=== PATIENT | male | born 1945 | race Caucasian/White ===

== ENCOUNTER 2018-10-16 14:14 | Inpatient (IN) | payer OTHER ==
[~2018-10-16] VITALS: Ht 172.7 cm; Wt 97.1 kg
--- NOTE | ~2018-10-16 | PR ---
[place], [place] PROGRESS NOTE NAME: INGRID SHAH UNIT #: [id number] ROOM: 316 DOCTOR: RUSS ZARAGOZA MD BIRTHDATE: [birth year] DOS: 10/18/2018 CHIEF COMPLAINT: The patient was very somnolent. SUMMARY OF THE VISIT: The patient was attempted to be interviewed. He had most of his breakfast eaten. He was dozing in his chair. As I called his name, he did make eye contact, but he did not make any verbalizations. He seemed very sedate. Nurses report no p.r.n. was given. MENTAL STATUS: He is alert and oriented to self, unclear place or time. Mood does seem to be still depressed. Affect flat, blunted, when he did speak. There is no germania, hypomania, and I could not elicit any psychotic symptoms, although nurses report this persists. PLAN: I will increase his Remeron from 15 to 30 mg at bedtime in an effort to lessen the sedation. We will engage in individual and dunbar milieu activity, returning to the least restrictive environment when psychiatrically stable. RUSS ZARAGOZA MD CM:PNTRANS RUSS ZARAGOZA MD 10/18/18 0846 interface
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
--- NOTE | ~2018-10-16 | PR ---
[place], [place] PROGRESS NOTE NAME: INGRID SHAH UNIT #: [id number] ROOM: 316 DOCTOR: RUSS ZARAGOZA MD BIRTHDATE: [birth year] DOS: 10/24/2018 INTERVAL NOTE CHIEF COMPLAINT: "I am not taking any of your poison." SUMMARY OF THE VISIT: The patient was interviewed in the dining area where he was sitting by himself. He engaged readily in conversation. He was very much negative about taking any medication. I did confront him on our conversation, we had in front of the records associate where he did state that he was feeling better and felt that the medications were working. I also further eluded that if he was not compliant with his medication, then his possible discharge that was going to happen as early as Monday may not happen. MENTAL STATUS: He is alert and oriented to person, place, not necessarily to time. Mood does seem to be solidly trending towards euthymia until this blip in the road. This does seem to be more access to driven than true psychosis or germania. Memory for the most part is intact. PLAN: I will simplify his drug regimen despite increasing his Depakote level, his levels have remained subtherapeutic, the most recent being 14.3. I will stop the Depakote. This will lessen the amount of meds that we presented to him. I will instruct nurses to attempt to facilitate having him take his Fanapt. We will monitor and support, engage in individual and dunbar milieu activity. RUSS ZARAGOZA MD CM:PNTRANS 6 5 RUSS ZARAGOZA MD 10/24/1825 interface
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
--- NOTE | ~2018-10-16 | PR ---
[place], [place] PROGRESS NOTE NAME: INGRID SHAH UNIT #: [id number] ROOM: 316 DOCTOR: RUSS ZARAGOZA MD BIRTHDATE: [birth year] DOS: 10/23/2018 INTERVAL NOTE CHIEF COMPLAINT: "I think I'm better doctor, I think I will sign in." SUMMARY OF THE VISIT: The patient was seen several times today first prior to his court hearing for continued stay. At that point in time, the patient did verbalize that he is feeling better and that this is the best he has felt in some time. His was there who also had the same opinion. The patient did at that time voluntarily sign in the hospital. Later, he was refusing to have his blood drawn to recheck a valproic acid level. The patient is frustrated by the amount of lab draws he is having. I did intervene at that point and give him support and discussed the importance of this blood test. I did also inform him that if this level was normal, he would have no further Depakote levels drawn during this hospital stay. The patient did eventually acquiesced and allowed the valproic acid level to be drawn. Overall, there is a steady trend in improvement. His behavior well at times is testing limits. Overall, he is much more appropriate in his conversation and his behavior has been much less bizarre and unpredictable. Outwardly, he is also tolerating the medicine well and I see no sedation, somnolence, extrapyramidal symptoms or tardive dyskinesia. MENTAL STATUS: He remains alert and oriented to person, place, very approximate to time. Mood does seem to be trending towards euthymia. Affect is more appropriate. There is no germania, hypomania or gross psychosis. For the most part, memory is intact. PLAN: I will increase his Fanapt from 8 mg twice a day to 8 mg in the morning and 12 mg at nighttime, increasing the nighttime dose so that he sleeps well and is not at all somnolent during the day. We will check the valproic acid level as mentioned earlier if the level is therapeutic maintained if not adjust accordingly. Continue to engage in individual and dunbar milieu activity, returning then to the least restrictive environment when psychiatrically stable. [place], [place] PROGRESS NOTE NAME: INGRID SHAH UNIT #: [id number] ROOM: [facility] DOCTOR: RUSS ZARAGOZA MD BIRTHDATE: [birth year] RUSS ZARAGOZA MD CM:PNTRANS [id number] RUSS ZARAGOZA MD 10/23/18 1648 interface
--- NOTE | ~2018-10-16 | PR ---
[place], [place] PROGRESS NOTE NAME: INGRID SHAH UNIT #: [id number] ROOM: 316 DOCTOR: RUSS ZARAGOZA MD BIRTHDATE: [birth year] DOS: 10/25/2018 INTERVAL NOTE CHIEF COMPLAINT: "Hey, is there any way a isis can get a shower around here." SUMMARY OF THE VISIT: The patient was interviewed as he was sitting with a female peer in the dining area. He engaged readily in conversation that for the most part was goal directed and pleasant. Nurses report that he was compliant with all of his medications yesterday and did not test limits and refused any of the medication. I did discuss with him the fact that I have discontinued his Depakote to simplify his regimen, leaving him with just the Remeron and the Fanapt and he nodded in approval. He does for the most part seem to be strongly trending towards euthymia and does not seem to be experiencing any type of side effects from the medications. I do not see sedation, somnolence, extrapyramidal symptoms or tardive dyskinesia. MENTAL STATUS: He is alert and oriented with time gaps. Mood does seem to be strongly trending towards euthymia. Affect is more appropriate. There is no germania, hypomania or psychosis. Memory for the most part is intact. PLAN: I will go ahead and print his scripts so that his may take them to the [place] in [place] to get them filled. Maintain his current psychotropic regimen at this time, engage in individual and dunbar milieu activity, returning then to the least restrictive environment when psychiatrically stable. RUSS ZARAGOZA MD CM:PNTRANS [id number] RUSS ZARAGOZA MD 10/25/18 1151 interface
--- NOTE | ~2018-10-16 | PR ---
[place], [place] PROGRESS NOTE NAME: INGRID SHAH UNIT #: [id number] ROOM: 316 DOCTOR: RUSS ZARAGOZA MD BIRTHDATE: [birth year] DOS: 10/26/2018 INTERVAL NOTE CHIEF COMPLAINT: "I wish I could watch the football games." SUMMARY OF THE VISIT: The patient was interviewed in the dining area where he was sitting watching [employer]. He stopped and engaged in conversation. He was much more pleasant and cooperative. No bizarre talk was noted. No sexual inappropriate behavior. Outwardly, he does seem to be tolerating the medication regimen well and I see no sedation, somnolence or extrapyramidal symptoms. MENTAL STATUS: He is alert and oriented with time gaps. Mood does seem to be strongly trending towards euthymia. Affect is more appropriate. There is no germania, hypomania or gross psychosis. Memory is intact. PLAN: I will continue his current psychotropic regimen, engage in individual and dunbar milieu activity, returning to the least restrictive environment when psychiatrically stable. RUSS ZARAGOZA MD CM:PNTRANS [id number] RUSS ZARAGOZA MD 10/26/18 1351 interface
--- NOTE | ~2018-10-16 | PR ---
[place], [place] PROGRESS NOTE NAME: INGRID SHAH UNIT #: [id number] ROOM: 316 DOCTOR: RUSS ZARAGOZA MD BIRTHDATE: [birth year] DOS: 10/22/2018 INTERVAL NOTE CHIEF COMPLAINT: "Hey, if you ____ would you tell me, they are giving me LSD." SUMMARY OF THE VISIT: The patient was interviewed in the dining area, where he was very negativistic and almost confrontational. He remains rather bizarre in some of his comments and there is a level of paranoia. He believes he is being slipped LSD while here and is tripping out. He could be very demanding and irritable at times. He remains grossly delusional and psychotic as well. He does seem to be outwardly tolerating all the medications and I see no sedation, somnolence, extrapyramidal symptoms or tardive dyskinesia. MENTAL STATUS: He remains alert and oriented to person, place, not time. Mood does still seem to be labile. Affect at times is inappropriate. There is no germania or hypomania. There are a gross delusional system present with paranoia. Memory has gaps. PLAN: I will continue to increase his Fanapt moving from 6 mg twice daily to 8 mg twice daily. I will also check a valproic acid level in the a.m. to ensure that it is therapeutic. Continue to monitor and support, engage in individual and group therapy, returning to the least restrictive environment when psychiatrically stable. RUSS ZARAGOZA MD CM:PNTRANS 0930 RUSS ZARAGOZA MD 10/22/18 1313 interface
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
[2018-10-16] MEDS ORDERED: Lovenox40 MG/0.4 SC (17:06)
[2018-10-16] MEDS ORDERED: LASIX40 MG PO (17:08)
[2018-10-16] MEDS ORDERED: MAGOX 400400 MG PO (17:11)
[2018-10-16] MEDS ORDERED: LANTUS SOL100 UNIT/1 SQ (17:11)
[2018-10-16] MEDS ORDERED: ASPIR 8181 MG PO (17:15)
[2018-10-16] MEDS ORDERED: GLUCOPHAGE500 M1 PO (17:17)
[2018-10-16] MEDS ORDERED: Lopressor25 MG PO (17:18)
[2018-10-16] MEDS ORDERED: VENTOLIN 02.5 MG/3 M INH (17:21)
[2018-10-16] MEDS ORDERED: INSTA-GLUCOSE G31 GM PO (17:23)
[2018-10-16] MEDS ORDERED: DULCOLAX10 M1 R (17:25)
[2018-10-16] MEDS ORDERED: GLUCAGON HCL1 MG IJ (17:29)
[2018-10-16 19:50] VITALS: BP 114/58
[2018-10-17 07:15] VITALS: BP 113/65
[2018-10-17 07:26] LABS: CHLORIDE 96 mmol/L (98-107); POTASSIUM 3.5 mmol/L (3.5-5.1); SODIUM 139 mmol/L (136-145)
[2018-10-17 07:45] LABS: VITAMIN D, 25-HYDROXY 41.8 ng/mL (30-100)
[2018-10-17 07:46] LABS: ALBUMIN 2.9 gm/dl (3.1-4.5); ALKALINE PHOSPHATASE 78 U/L (45-117); BUN 10 mg/dl (7-24); CHOLESTEROL 229 mg/dL (<200); CREATININE 0.31 mg/dL (0.70-1.30); HDL CHOLESTEROL 34 mg/dl (40-60); LDL CHOLESTEROL 160 mg/dL (9-159); SGOT/AST 26 IU/L (3-35); SGPT/ALT 30 U/L (12-78); TRIGLYCERIDES 176 mg/dl (<150); VLDL CHOLESTEROL 35 mg/dL (6-40)
[2018-10-17] MEDS ORDERED: SYSTANE GEL EYE10 ML OU (16:30)
[2018-10-17] MEDS ORDERED: AREDS PO (16:32)
[2018-10-17 20:05] VITALS: BP 104/59
[2018-10-18 08:37] VITALS: BP 111/59
[2018-10-18 10:10] VITALS: BP 102/58
[2018-10-18 20:22] VITALS: BP 115/60
[2018-10-19 07:47] VITALS: BP 119/61
[2018-10-19 20:25] VITALS: BP 132/60
[2018-10-20 07:34] VITALS: BP 136/71
[2018-10-20 19:37] VITALS: BP 122/88
[2018-10-21 20:03] VITALS: BP 123/70
[2018-10-21 21:41] LABS: BILIRUBIN NEGATIVE (NEGATIVE); BLOOD NEGATIVE (NEGATIVE); CLARITY SL CLOUDY (CLEAR); COLOR YELLOW (YELLOW); GLUCOSE NEGATIVE (NEGATIVE); KETONE TRACE (NEGATIVE); LEUKO ESTERASE NEGATIVE (NEGATIVE); NITRITE NEGATIVE (NEGATIVE); SPECIFIC GRAVITY 1.015 (1.005-1.030); UROBILINOGEN 0.2 E.U./dl (0.2-1.0)
[2018-10-21 21:46] LABS: BACTERIA 2+
[2018-10-22 07:10] LABS: HEMATOCRIT 43.3 % (42.0-52.0); HEMOGLOBIN 13.6 g/dl (14.0-18.0); MEAN CELL VOLUME 86.8 fl (80.0-94.0); MEAN CORPUSCULAR HGB 27.3 pg (27.0-31.0); MEAN CORPUSCULAR HGB CONC 31.4 g/dl (33.0-37.0); MEAN PLATELET VOLUME 11.4 fl (9.6-12.3); PLATELET COUNT AUTOMATED 182 10*3/uL (130-400); RED BLOOD COUNT 4.99 10*6/uL (4.50-5.90); RED CELL DISTRI WIDTH 15.8 % (0-14.5); WHITE BLOOD COUNT 7.9 10*3/uL (4.8-10.8)
[2018-10-22 07:20] LABS: BUN 11 mg/dl (7-24); CHLORIDE 98 mmol/L (98-107); CREATININE 0.36 mg/dL (0.70-1.30); POTASSIUM 3.5 mmol/L (3.5-5.1); SODIUM 139 mmol/L (136-145)
[2018-10-22 07:58] LABS: ATYPICAL LYMPHS 1 % (0-0); PLATELET SUFFICIENCY NORMAL (NORMAL); TOTAL CELLS COUNTED 100 #CELLS
[2018-10-22 09:13] VITALS: BP 132/75
[2018-10-22 19:52] VITALS: BP 120/73
[2018-10-23 08:00] VITALS: BP 103/57
[2018-10-23 19:41] VITALS: BP 125/64
[2018-10-24 07:12] VITALS: BP 115/74
[2018-10-24 19:56] VITALS: BP 112/76
[2018-10-24 20:35] VITALS: BP 118/78
[2018-10-25 07:50] VITALS: BP 105/96
[2018-10-25] MEDS ORDERED: B121000 MCG/1 IM (08:45)
[2018-10-25] MEDS ORDERED: FANAPT12 MG PO (08:45)
[2018-10-25] MEDS ORDERED: MIRTAZAPINE30 M2 PO (08:45)
[2018-10-25] MEDS ORDERED: FANAPT4 MG PO (08:45)
[2018-10-25 09:04] VITALS: BP 108/58
[2018-10-25 18:40] VITALS: BP 133/70
[2018-10-26 07:06] VITALS: BP 127/69
[2018-10-26 20:05] VITALS: BP 130/72
[2018-10-27 07:42] VITALS: BP 124/66
[2018-10-27] MEDS ORDERED: REMEDY CALAZIME4 GM T (08:45)
[2018-10-27] MEDS ORDERED: DULCOLAX5 M1 PO (08:51)
== END 2018-10-27 12:14 | disposition home or self-care (01) | DRG 885 ==
LOC: 3N 14:14
PROVIDERS: Psychiatry & Neurology Psychiatry; Registered Nurse
DX: F33.3 Major depressive disorder, recurrent, severe with psychotic symptoms (principal); E44.0 Moderate protein-calorie malnutrition; F23 Brief psychotic disorder; L89.159 Pressure ulcer of sacral region, unspecified stage; J44.9 Chronic obstructive pulmonary disease, unspecified; E53.8 Deficiency of other specified B group vitamins; I50.9 Heart failure, unspecified; E11.9 Type 2 diabetes mellitus without complications; F43.10 Post-traumatic stress disorder, unspecified; I11.0 Hypertensive heart disease with heart failure; I45.10 Unspecified right bundle-branch block; E78.2 Mixed hyperlipidemia; L89.150 Pressure ulcer of sacral region, unstageable; Z79.899 Other long term (current) drug therapy; Z83.3 Family history of diabetes mellitus; Z82.49 Family history of ischemic heart disease and other diseases of the circulatory system; Z88.8 Allergy status to other drugs, medicaments and biological substances; Z79.51 Long term (current) use of inhaled steroids; Z68.32 Body mass index [BMI] 32.0-32.9, adult; Z79.4 Long term (current) use of insulin; Z79.82 Long term (current) use of aspirin